=== PATIENT | male | born 1985 | race Caucasian/White ===

== ENCOUNTER 2016-06-01 21:51 | Emergency (ER) | payer SELFPAY ==
[2016-06-01] MEDS ORDERED: SODIUM CHLORIDE 0.9% 1,000 ML ONE (22:16)
[2016-06-01] MEDS ORDERED: SODIUM CHLORIDE 0.9% 2,000 ML ONE (22:25)
[2016-06-01] MEDS ORDERED: LORAZEPAM 2 MG/ML VIAL ONE (22:25)
== END 2016-06-02 01:10 | disposition home or self-care (01) ==
LOC: ER 21:51
DX: R55 Syncope and collapse (principal); F19.10 Other psychoactive substance abuse, uncomplicated
CPT/HCPCS: 36415; 80053; 80307; 80320; 80329; 81001; 82553; 84439; 84443; 84484; 85025; 85610; 93005; 96361; 96374